=== PATIENT | female | born 1990 | race Caucasian/White ===

== ENCOUNTER 2018-11-24 21:38 | Outpatient (CLI) | payer MEDICAID ==
[~2018-11-24] VITALS: Ht 157.5 cm; Wt 71.0 kg
[2018-11-24 22:14] VITALS: BP 112/56
== END 2018-11-24 22:40 | disposition home or self-care (01) ==
LOC: LDOP 21:38
PROVIDERS: ATTEND Obstetrics & Gynecology Maternal & Fetal Medicine
DX: O36.8130 Decreased fetal movements, third trimester, not applicable or unspecified (principal); O26.613 Liver and biliary tract disorders in pregnancy, third trimester; K83.1 Obstruction of bile duct; Z3A.32 32 weeks gestation of pregnancy
CPT/HCPCS: 59025; 76815; 99211; G0463

== ENCOUNTER 2018-12-11 21:02 | Inpatient (IN) | payer MEDICAID ==
[~2018-12-11] VITALS: Ht 157.5 cm; Wt 72.3 kg
[2018-12-11] MEDS: D5%-LACTATED RINGERS 1,000 ML IV SCH (21:04)
[2018-12-11] MEDS ORDERED: OXYTOCIN 30U/ 0.9% NaCL 500ML 500 ML IV ONE (21:04)
[2018-12-11] MEDS ORDERED: LIDOCAINE 1%, 20ML ONE (21:16)
[2018-12-11] MEDS ORDERED: NEWBORN KIT ONE (21:16)
[2018-12-11] MEDS ORDERED: MISOPROSTOL 200 MCG TABLET ONE (21:17)
[2018-12-11] MEDS ORDERED: OXYTOCIN 30U/ 0.9% NaCL 500ML 500 ML ONE (21:17)
[2018-12-11] MEDS ORDERED: PLEASE ENTER ALLERGIES MC SCH (21:30)
[2018-12-11] MEDS ORDERED: ONDANSETRON 2MG/ML, 2ML IVPush PRN (21:30)
[2018-12-11] MEDS ORDERED: FENTANYL PF 100 MCG/2ML IV PRN (21:30)
[2018-12-11 21:39] LABS: BASOPHILS # (AUTO) 0.03 x10^3/uL (0-0.1); BASOPHILS % (AUTO) 0 % (0-1); EOSINOPHILS # (AUTO) 0.18 x10^3/uL (0-0.4); EOSINOPHILS % (AUTO) 2 % (1-7); LYMPHOCYTES % (AUTO) 23 % (22-44); MD NO; MEAN CORPUSCULAR HEMOGLOBIN 28.2 pg (27.0-34.8); MEAN CORPUSCULAR HGB CONC 32.3 g/dL (32.4-35.8); MEAN CORPUSCULAR VOLUME 87.4 fL (80-100); MEAN PLATELET VOLUME 10.3 fL (7.4-10.4); MONOCYTES # (AUTO) 0.96 x10^3/uL (0.2-0.8); MONOCYTES % (AUTO) 9 % (2-9); NEUTROPHILS # (AUTO) 7.19 x10^3/uL (1.8-6.8); NEUTROPHILS % (AUTO) 66 % (42-75); PLATELET COUNT 193 x10^3/uL (130-400); RED BLOOD COUNT 3.94 x10^6/uL (3.82-5.3); RED CELL DISTRIBUTION WIDTH 13.9 % (9.6-15.2)
[2018-12-11] MEDS ORDERED: MISOPROSTOL 25 MCG TABLET ONE (21:44)
[2018-12-11] MEDS: MISOPROSTOL 25 MCG TABLET VG PRN (21:50)
[2018-12-11 22:09] VITALS: BP 113/61
[2018-12-11] MEDS ORDERED: PLEASE ENTER HEIGHT AND WEIGHT MC SCH (22:30)
[2018-12-12] MEDS ORDERED: MISOPROSTOL 25 MCG TABLET ONE (02:30)
[2018-12-12] MEDS: MISOPROSTOL 25 MCG TABLET VG PRN (02:35)
[2018-12-12] MEDS: LACTATED RINGERS 1,000 ML IV SCH ×4 (02:47→11:01)
[2018-12-12] MEDS: D5%-LACTATED RINGERS 1,000 ML IV SCH ×3 (05:04→23:40)
[2018-12-12] MEDS ORDERED: FENTANYL PF 100 MCG/2ML ONE ×2 (06:08→09:04)
[2018-12-12] MEDS: FENTANYL PF 100 MCG/2ML IVPush PRN ×4 (06:23→17:23)
[2018-12-12] MEDS ORDERED: OXYTOCIN 30U/ 0.9% NaCL 500ML 500 ML ONE ×2 (07:11→14:26)
[2018-12-12] MEDS ORDERED: OXYTOCIN 30U/ 0.9% NaCL 500ML 500 ML IV PRN (07:13)
[2018-12-12] MEDS ORDERED: FENTANYL/BUPIV./NS/PF 250 ML EPIDCONT SCH (08:26)
[2018-12-12] MEDS ORDERED: BUPIVACAINE 0.25% ONE (09:26)
[2018-12-12] MEDS ORDERED: MEASLES,MUMPS&RUBELLA VACC/PF 0.5 ML SQ PRN (13:00)
[2018-12-12] MEDS ORDERED: OXYcodone/APAP 5/325MG TABLET PO PRN (13:00)
[2018-12-12] MEDS ORDERED: METHYLERGONOVINE 0.2 MG/ML IM PRN (13:00)
[2018-12-12] MEDS ORDERED: CARBOPROST TROMETHAMINE 250 MCG/ML, 1ML IM PRN (13:00)
[2018-12-12] MEDS ORDERED: DIPH,PERTUSS(ACELL),TET VAC/PF NC IM-VACC PRN (13:00)
[2018-12-12] MEDS ORDERED: ACETAMINOPHEN 325 MG TABLET PO PRN (13:00)
[2018-12-12] MEDS ORDERED: RHOGAM FROM BLOOD BANK 1 NOTE EA IM/IV ONE (13:00)
[2018-12-12] MEDS ORDERED: MISOPROSTOL 200 MCG TABLET PR PRN (13:00)
[2018-12-12] MEDS: OXYTOCIN 30U/ 0.9% NaCL 500ML 500 ML IV SCH ×2 (15:01→23:41)
[2018-12-12 15:45] VITALS: BP 106/58
[2018-12-12] MEDS: IBUPROFEN 600 MG TABLET PO PRN (19:20)
[2018-12-12 19:31] VITALS: BP 99/63
[2018-12-12 21:23] LABS: BASOPHILS # (AUTO) 0.14 x10^3/uL (0-0.1); BASOPHILS % (AUTO) 1 % (0-1); EOSINOPHILS # (AUTO) 0.34 x10^3/uL (0-0.4); EOSINOPHILS % (AUTO) 3 % (1-7); LYMPHOCYTES # (AUTO) 1.91 x10^3/uL (1-3.4); LYMPHOCYTES % (AUTO) 14 % (22-44); MD NO; MEAN CORPUSCULAR HEMOGLOBIN 28.7 pg (27.0-34.8); MEAN CORPUSCULAR HGB CONC 32.9 g/dL (32.4-35.8); MEAN CORPUSCULAR VOLUME 87.3 fL (80-100); MEAN PLATELET VOLUME 10.4 fL (7.4-10.4); MONOCYTES # (AUTO) 1.06 x10^3/uL (0.2-0.8); MONOCYTES % (AUTO) 8 % (2-9); NEUTROPHILS # (AUTO) 10.17 x10^3/uL (1.8-6.8); NEUTROPHILS % (AUTO) 75 % (42-75); PLATELET COUNT 164 x10^3/uL (130-400); RED BLOOD COUNT 3.92 x10^6/uL (3.82-5.3); RED CELL DISTRIBUTION WIDTH 13.8 % (9.6-15.2)
[2018-12-12 23:47] VITALS: BP 95/62
[2018-12-13] MEDS: IBUPROFEN 600 MG TABLET PO PRN ×3 (02:33→16:49)
[2018-12-13] MEDS: OXYcodone/APAP 5/325MG TABLET PO PRN ×4 (02:33→20:32)
[2018-12-13] MEDS: LACTATED RINGERS 1,000 ML IV SCH (03:37)
[2018-12-13] MEDS: D5%-LACTATED RINGERS 1,000 ML IV SCH (03:37)
[2018-12-13 04:16] VITALS: BP 117/67
[2018-12-13 08:00] VITALS: BP 94/60
[2018-12-13] MEDS: PRENATAL VIT/IRON/FA 1 EACH TABLET PO SCH (09:36)
[2018-12-13] MEDS: DOCUSATE 100 MG CAPSULE PO PRN ×2 (09:36→20:32)
[2018-12-13 13:30] VITALS: BP 106/71
[2018-12-13 19:57] VITALS: BP 103/69
[2018-12-14] MEDS: IBUPROFEN 600 MG TABLET PO PRN (06:43)
[2018-12-14] MEDS: PRENATAL VIT/IRON/FA 1 EACH TABLET PO SCH (07:48)
[2018-12-14] MEDS: DOCUSATE 100 MG CAPSULE PO PRN (07:48)
[2018-12-14 08:16] VITALS: BP 100/68
== END 2018-12-14 11:00 | disposition home or self-care (01) | DRG 805 ==
LOC: LDIP 21:02 → 2NW 12-12 15:45
PROVIDERS: ADMIT Obstetrics & Gynecology Maternal & Fetal Medicine; ATTEND Obstetrics & Gynecology Maternal & Fetal Medicine
PROC: 3E033VJ Introduction of Other Hormone into Peripheral Vein, Percutaneous Approach (ICD-10-PCS; 2018-12-11)
PROC: 10E0XZZ Delivery of Products of Conception, External Approach (ICD-10-PCS; principal; 2018-12-12)
PROC: 3E0R3BZ Introduction of Anesthetic Agent into Spinal Canal, Percutaneous Approach (ICD-10-PCS; 2018-12-12)
PROC: 00HU33Z Insertion of Infusion Device into Spinal Canal, Percutaneous Approach (ICD-10-PCS; 2018-12-12)
PROC: 10907ZC Drainage of Amniotic Fluid, Therapeutic from Products of Conception, Via Natural or Artificial Opening (ICD-10-PCS; 2018-12-12)
PROC: 3E0P7VZ Introduction of Hormone into Female Reproductive, Via Natural or Artificial Opening (ICD-10-PCS; 2018-12-12)
DX: O26.62 Liver and biliary tract disorders in childbirth (principal); K83.1 Obstruction of bile duct; O69.81X0 Labor and delivery complicated by cord around neck, without compression, not applicable or unspecified; O99.344 Other mental disorders complicating childbirth; F32.9 Major depressive disorder, single episode, unspecified; O76 Abnormality in fetal heart rate and rhythm complicating labor and delivery; Z37.0 Single live birth; Z3A.37 37 weeks gestation of pregnancy; Z90.49 Acquired absence of other specified parts of digestive tract
CPT/HCPCS: 36415; 82803; 85025; 86850; 86900; G0378; J3010; J2590; J7120